=== PATIENT | female | born 1975 ===

== ENCOUNTER 2023-01-06 06:20 | Day surgery (SDC) | payer OTHER ==
[~2023-01-06] VITALS: Ht 157.5 cm; Wt 56.2 kg
== END 2023-01-06 13:20 | disposition home or self-care (01) ==
LOC: CIR.AMB 06:20
PROVIDERS: ATTEND Obstetrics & Gynecology Gynecologic Oncology
DX: D27.1 Benign neoplasm of left ovary (principal); Z20.822 Contact with and (suspected) exposure to COVID-19